=== PATIENT | female | born 1960 | race Caucasian/White ===

== ENCOUNTER → 2017-03-06 | Outpatient (CLI) | payer BC ==
--- NOTE | 2017-03-08 08:55 | MM ---
Reason for exam: screening (asymptomatic). Last mammogram was performed 1 year and 1 month ago. History: Patient is postmenopausal. Benign US biopsy breast VAD RT of the right breast, January 28, 2015. Benign excisional biopsy of the left breast, 1994. Took hormonal contraceptives for 9 years beginning at age 20. Took estrogen for 1 year 6 months. Physical Findings: A clinical breast exam by your physician is recommended on an annual basis and results should be correlated with mammographic findings. MG 3D Screening Mammo W/Cad Bilateral CC and MLO view(s) were taken. Prior study comparison: February 16, 2016, bilateral MG 3d diag mammo w/cad [facility]. August 09, 2015, right breast MG 3d diag mammo w/cad RT. August 09, 2015, right breast US breast RT. The breast tissue is heterogeneously dense. This may lower the sensitivity of mammography. Previous mammotome biopsy in the right breast. There is no discrete abnormality. ASSESSMENT: Benign, BI-RAD 2 RECOMMENDATION: Routine screening mammogram of both breasts in 1 year.
== END | disposition home or self-care (01) ==
LOC: RADMAMWWP 09:41
PROVIDERS: ATTEND Obstetrics & Gynecology
DX: Z12.31 Encounter for screening mammogram for malignant neoplasm of breast (principal)
CPT/HCPCS: 77063; G0202

== ENCOUNTER → 2017-03-12 | Outpatient (CLI) | payer BC ==
[2017-03-12 09:49] LABS: Aty Lym Flag Marked; CH 31.5; HCT 40.6 % (34.0-46.0); HDW 2.01; HGB 13.8 gm/dL (11.4-16.0); MCH 32.7 pg (25.0-35.0); MCHC 34.1 g/dL (31.0-37.0); MCV 95.9 fL (80.0-100.0); Mean Platelet Volume 6.7; RBC 4.23 m/uL (3.80-5.40); RDW 12.3 % (11.5-15.5); WBC 4.5 k/uL (3.8-10.6); WBC (Perox) 4.87
[2017-03-12 10:05] LABS: ALT 21 U/L (9-52); AST 21 U/L (14-36); Alkaline Phosphatase 61 U/L (38-126); Anion Gap 12 mmol/L; Blood Urea Nitrogen 17 mg/dL (7-17); Calcium 10.4 mg/dL (8.4-10.2); Carbon Dioxide 25 mmol/L (22-30); Chloride 105 mmol/L (98-107); Cholesterol 255 mg/dL (<200); Glucose 117 mg/dL (74-99); HDL Cholesterol 105 mg/dL (40-60); Non-African American GFR(MDRD) >60 (>60 ml/min/1.73 sqM); Potassium 4.1 mmol/L (3.5-5.1); Sodium 142 mmol/L (137-145); Total Protein 7.7 g/dL (6.3-8.2); Triglycerides 118 mg/dL (<150)
[2017-03-12 11:36] LABS: Hemoglobin A1C 5.5 % (4.2-6.1)
[2017-03-12 12:26] LABS: Add Differential Manual Differential
[2017-03-12 12:28] LABS: Nucleated Red Blood Cells 0 /100 WBC (0-0); Total Cells Counted 100
[2017-03-12 12:29] LABS: RBC Morphology Normal
== END | disposition home or self-care (01) ==
LOC: LABWHC1 09:17
PROVIDERS: ATTEND Internal Medicine Critical Care Medicine
DX: Z00.00 Encounter for general adult medical examination without abnormal findings (principal); I10 Essential (primary) hypertension; E78.5 Hyperlipidemia, unspecified; E55.9 Vitamin D deficiency, unspecified
CPT/HCPCS: 36415; 80053; 80061; 82306; 83036; 84439; 84443; 85025

== ENCOUNTER → 2017-03-13 | Outpatient (CLI) | payer BC | END | disposition home or self-care (01) | LOC: LABWHC1 13:16 | PROVIDERS: ATTEND Internal Medicine Critical Care Medicine | DX: E83.52 Hypercalcemia (principal) | CPT/HCPCS: 36415; 82330; 83970 ==

== ENCOUNTER → 2017-07-25 | Day surgery (SDC) | payer BC ==
[2017-07-23 15:15] VITALS: BMI 21.9
[~2017-07-25] MED LIST: LACTATED RINGERS 1,000 ML IV SCH; LIDOCAINE 1% 20 ML VIAL (10MG/ML) FOR IV START INTRADERMA ONE; ONDANSETRON 4 MG/2 ML VIAL IVP ONE; PROPOFOL 10 MG/ML 20 ML VIAL IV ONE
[2017-07-25 09:53] VITALS: RESP 16; TEMP 98.1
--- NOTE | 2017-07-25 10:43 | P.PCN ---
Date of Procedure: 07/25/17 Procedure(s) Performed: BRIEF HISTORY: Patient is a 56-year-old pleasant white female, scheduled for an elective colonoscopy as a part of evaluation of prior history of colon polyps. Last colonoscopy was in 5 years ago and was noted to have a tubular adenoma. PROCEDURE PERFORMED: Colonoscopy with snare polypectomy. PREOPERATIVE DIAGNOSIS: History of colon polyps. IV sedation per Anesthesia. PROCEDURE: After informed consent was obtained, the patient, was brought into the endoscopy unit. IV sedation was administered by Anesthesia under continuous monitoring. Digital rectal examination was normal. Initially the Olympus CF- 160 flexible video colonoscope was then inserted in the rectum, gradually advanced into the cecum without any difficulty. Careful examination was performed as the scope was gradually being withdrawn. Ileocecal valve and the appendiceal orifice were visualized and appeared normal. Prep was excellent. Mucosa of the cecum, ascending colon, transverse colon, descending colon, sigmoid colon, and rectum appeared normal. In the rectosigmoid colon at 20 cm from the anal was there was a 1 cm broad-based polyp removed by snare polyp ectomy. Retroflexion was performed in the rectum and no lesions were seen. The patient tolerated the procedure well. IMPRESSION: 1 cm broad-based recto sigmoid polyp status post polypectomy Rest of the colon appeared normal RECOMMENDATIONS: Findings of this examination were discussed with the patient as well as a family. She was advised to follow with the biopsy results. If the biopsy shows a tubular adenoma she can have a repeat colonoscopy in 3-5 years.
[2017-07-25 11:07] VITALS: BP 115/79; PULSE 65
== END | disposition home or self-care (01) ==
LOC: ORWHC2ENDO 09:00
PROVIDERS: ATTEND Internal Medicine Gastroenterology
DX: Z12.11 Encounter for screening for malignant neoplasm of colon (principal); D12.7 Benign neoplasm of rectosigmoid junction; I10 Essential (primary) hypertension; E78.5 Hyperlipidemia, unspecified; Z86.010 Personal history of colon polyps; Z88.2 Allergy status to sulfonamides; Z79.1 Long term (current) use of non-steroidal anti-inflammatories (NSAID); Z79.899 Other long term (current) drug therapy; Z86.73 Personal history of transient ischemic attack (TIA), and cerebral infarction without residual deficits
CPT/HCPCS: 45385; 88305; J2405; J2704

== ENCOUNTER → 2017-10-02 | Outpatient (CLI) | payer BC ==
[2017-10-02 08:39] LABS: Cholesterol 193 mg/dL (<200); Glucose 104 mg/dL (74-99); HDL Cholesterol 93 mg/dL (40-60); LDL Cholesterol,Calculated 85 mg/dL (0-99); Triglycerides 76 mg/dL (<150)
[2017-10-02 18:52] LABS: Hemoglobin A1C 5.5 % (4.0-6.0)
== END | disposition home or self-care (01) ==
LOC: LABWHC1 07:34
PROVIDERS: ATTEND Internal Medicine Critical Care Medicine
DX: E78.5 Hyperlipidemia, unspecified (principal); R73.09 Other abnormal glucose
CPT/HCPCS: 36415; 80061; 82947; 83036

== ENCOUNTER → 2018-03-13 | Outpatient (CLI) | payer BC ==
--- NOTE | 2018-03-14 10:35 | MM ---
Reason for exam: screening (asymptomatic). Last mammogram was performed 1 year ago. History: Patient is postmenopausal. Benign US biopsy breast VAD RT of the right breast, January 28, 2015. Benign excisional biopsy of the left breast, 1994. Took hormonal contraceptives for 9 years beginning at age 20. Took estrogen for 1 year 6 months. Physical Findings: A clinical breast exam by your physician is recommended on an annual basis and results should be correlated with mammographic findings. MG 3D Screening Mammo W/Cad Bilateral CC and MLO view(s) were taken. Prior study comparison: March 06, 2017, bilateral MG 3d screening mammo w/cad. February 16, 2016, bilateral MG 3d diag mammo w/cad [facility]. The breast tissue is heterogeneously dense. This may lower the sensitivity of mammography. There is no discrete abnormality. No significant changes when compared with prior studies. ASSESSMENT: Negative, BI-RAD 1 RECOMMENDATION: Routine screening mammogram of both breasts in 1 year.
== END | disposition home or self-care (01) ==
LOC: RADMAMWWP 11:03
PROVIDERS: ATTEND Obstetrics & Gynecology
DX: Z12.31 Encounter for screening mammogram for malignant neoplasm of breast (principal)
CPT/HCPCS: 77063; 77067

== ENCOUNTER → 2018-04-15 | Outpatient (CLI) | payer BC ==
--- NOTE | 2018-04-15 08:39 | US ---
EXAMINATION TYPE: US abdomen complete DATE OF EXAM: 04/15/2018 COMPARISON: US CLINICAL HISTORY: R10.84 Abdominal pain. Ant. flank pain, RLQ pain EXAM MEASUREMENTS: Liver Length: 11.4 cm Gallbladder Wall: 0.2 cm CBD: 0.3 cm Spleen: 8.5 cm Right Kidney: 11.3 x 4.1 x 5.7 cm Left Kidney: 13.3 x 5.9 x 6.0 cm Pancreas: visualized portions wnl Liver: wnl Gallbladder: No stones seen Evidence for sonographic Griffin's sign: No CBD: wnl Spleen: wnl Right Kidney: No hydronephrosis or masses seen Left Kidney: No hydronephrosis or masses seen Upper IVC: wnl Abd Aorta: wnl The visualized liver is slightly heterogeneous. The intrahepatic portion of the IVC and visualized a bdominal aorta are within normal limits. There is no evidence of cholelithiasis. Common bile duct i s unremarkable. The visualized portions of the pancreas are homogenous. The spleen is unremarkable. Kidneys are symmetric and free of hydronephrosis. No renal lesions are seen on images saved. IMPRESSION: No suspicious finding is seen to account for patient's symptoms.
--- NOTE | 2018-04-15 08:43 | XR ---
EXAMINATION TYPE: XR abdomen 1V DATE OF EXAM: 04/15/2018 8:40 AM CLINICAL HISTORY: Lower abdominal pain. TECHNIQUE: Two supine KUB images of the abdomen are obtained. COMPARISON: None. FINDINGS: Scattered gas is seen in non-distended small bowel loops. Gas and fecal material is seen in non-distended colon. Scattered pelvic phleboliths are seen. There are round densities or calcificati ons in the epigastric region of uncertain etiology . Lung bases are clear. Visualized osseous structu res are intact. IMPRESSION: Overall nonobstructive bowel gas pattern.
== END | disposition home or self-care (01) ==
LOC: RADUSWWP 08:02
PROVIDERS: ATTEND Internal Medicine Critical Care Medicine
DX: R10.84 Generalized abdominal pain (principal); R10.13 Epigastric pain
CPT/HCPCS: 74018; 76700

== ENCOUNTER → 2018-10-01 | Outpatient (CLI) | payer BC ==
[2018-10-01 09:19] LABS: HCT 40.8 % (34.0-46.0); HGB 13.3 gm/dL (11.4-16.0); MCH 31.2 pg (25.0-35.0); MCHC 32.6 g/dL (31.0-37.0); MCV 95.6 fL (80.0-100.0); Mean Platelet Volume 6.7; Platelet Count 277 k/uL (150-450); RBC 4.26 m/uL (3.80-5.40); RDW 12.6 % (11.5-15.5); WBC 4.6 k/uL (3.8-10.6)
[2018-10-01 10:31] LABS: Eosinophils # (M) 0.14 k/uL (0-0.7); Lymphocytes # (M) 2.02 k/uL (1.0-4.8); Monocytes # (M) 0.41 k/uL (0-1.0); Neutrophils # (M) 2.02 k/uL (1.3-7.7); Neutrophils % (M) 44 %; Nucleated Red Blood Cells 0 /100 WBC (0-0); Total Cells Counted 100
[2018-10-01 16:39] LABS: Albumin 4.8 g/dL (3.80-4.90); Anion Gap 9.8 mmol/L (4.00-12.00); Calcium 9.8 mg/dL (8.7-10.3); Carbon Dioxide 26.2 mmol/L (21.6-31.8); Globulin 1.6 g/dL (1.6-3.3); Phosphorus 3.6 mg/dL (2.4-5.1); Potassium 3.7 mmol/L (3.5-5.5); Total Bilirubin 0.8 mg/dL (0.3-1.2); Total Protein 6.4 g/dL (6.2-8.2)
[2018-10-01 16:46] LABS: T4, Free (Free Thyroxine) 1.1 ng/dL (0.80-1.80)
[2018-10-01 17:24] LABS: Vitamin D 25 Hydroxy 38.9 ng/mL (30.0-100.0)
[2018-10-01 17:33] LABS: Hemoglobin A1C 5.4 % (4.0-6.0)
[2018-10-01 18:43] LABS: Folate, Serum >24.0 ng/mL
== END ==
LOC: LABWHC1 08:50
PROVIDERS: ATTEND Internal Medicine Critical Care Medicine
DX: I10 Essential (primary) hypertension (principal); G47.00 Insomnia, unspecified
CPT/HCPCS: 36415; 80053; 80061; 82306; 82607; 82746; 83036; 83735; 84100; 84425; 84439; 84443; 85025

== ENCOUNTER → 2019-01-24 | Outpatient (CLI) | payer BC ==
--- NOTE | 2019-01-24 13:56 | CT ---
EXAMINATION TYPE: CT sinus wo con DATE OF EXAM: 01/24/2019 COMPARISON: CT facial bones September 22, 2013 HISTORY: Chronic sinusitis per order. Facial pain and ringing in right ear per patient CT DLP: 624.2 mGycm. Automated Exposure Control for Dose Reduction was Utilized. TECHNIQUE: CT scan of the sinuses is performed without contrast, axial images are obtained, coronal r eformatted images are also reviewed. FINDINGS: Minimal mucosal thickening inferior left maxillary sinus is redemonstrated. Mild to minimal mucosal thickening involving anterior ethmoid sinuses bilaterally is again seen. Remainder sinuses a re clear without suspicious opacification or air-fluid levels.. The ostiomeatal complex is patent bi laterally on the coronal images. Mild to moderate mucosal antral thickening coronal image 19 is noted . There is evidence of prior surgery lower right nasal turbinates unchanged from prior. Nasal septum remains deviated to left of midline. Visualized portion of mastoid air cells show no abnormal opacification. The globes are intact bilate rally. Visualized brain parenchyma is unremarkable IMPRESSION: Mild chronic paranasal sinus disease. No acute sinusitis.
== END | disposition home or self-care (01) ==
LOC: RADCTMAIN 13:30
PROVIDERS: ATTEND Internal Medicine Critical Care Medicine
DX: J32.9 Chronic sinusitis, unspecified (principal)
CPT/HCPCS: 70486

== ENCOUNTER → 2019-03-14 | Outpatient (CLI) | payer BC ==
--- NOTE | 2019-03-17 10:47 | MM ---
Reason for exam: screening (asymptomatic). Last mammogram was performed 1 year ago. History: Patient is postmenopausal. Benign US biopsy breast VAD RT of the right breast, January 28, 2015. Benign excisional biopsy of the left breast, 1994. Took hormonal contraceptives for 9 years beginning at age 20. Took estrogen for 1 year 6 months. Physical Findings: A clinical breast exam by your physician is recommended on an annual basis and results should be correlated with mammographic findings. MG 3D Screening Mammo W/Cad Bilateral CC and MLO view(s) were taken. Prior study comparison: March 13, 2018, bilateral MG 3d screening mammo w/cad. March 06, 2017, bilateral MG 3d screening mammo w/cad. The breast tissue is heterogeneously dense. This may lower the sensitivity of mammography. Benign appearing bilateral calcifications. No significant changes when compared with prior studies. ASSESSMENT: Benign, BI-RAD 2 RECOMMENDATION: Routine screening mammogram of both breasts in 1 year.
== END | disposition home or self-care (01) ==
LOC: RADMAMWWP 13:20
PROVIDERS: ATTEND Obstetrics & Gynecology
DX: Z12.31 Encounter for screening mammogram for malignant neoplasm of breast (principal)
CPT/HCPCS: 77063; 77067

== ENCOUNTER → 2019-04-10 | Outpatient (CLI) | payer BC ==
[2019-04-10 16:08] LABS: African American GFR (CKD) 71.4 (60.0-200.0)
== END | disposition home or self-care (01) ==
LOC: LABWHC1 11:21
PROVIDERS: ATTEND Otolaryngology
DX: H91.92 Unspecified hearing loss, left ear (principal); R42 Dizziness and giddiness; H93.12 Tinnitus, left ear; H93.3X2 Disorders of left acoustic nerve; Z88.2 Allergy status to sulfonamides
CPT/HCPCS: 36415; 82565; 84520

== ENCOUNTER → 2020-03-24 | Outpatient (CLI) | payer BC ==
[2020-03-24 18:37] LABS: HCT 43.5 % (34.0-46.0); HGB 13.2 gm/dL (11.4-16.0); MCH 30.2 pg (25.0-35.0); MCHC 30.3 g/dL (31.0-37.0); MCV 99.8 fL (80.0-100.0); Mean Platelet Volume 9.2; Platelet Count 229 k/uL (150-450); RBC 4.36 m/uL (3.80-5.40); RDW 12.5 % (11.5-15.5); WBC 4.7 k/uL (3.8-10.6)
[2020-03-24 19:27] LABS: Band Neutrophils % 1 %; Eosinophils # (M) 0.14 k/uL (0-0.7); Monocytes # (M) 0.38 k/uL (0-1.0); Neutrophils % (M) 56 %; Nucleated Red Blood Cells 0 /100 WBC (0-0); Total Cells Counted 100
[2020-03-24 19:32] LABS: Poikilocytosis (M) Present
[2020-03-24 23:20] LABS: African American GFR (CKD) 92.9 (60.0-200.0); Albumin 4.9 g/dL (3.80-4.90); Albumin/Globulin Ratio 2.23 (1.60-3.17); Anion Gap 9.3 mmol/L (4.00-12.00); BUN/Creat Ratio 26.25 Ratio (12.00-20.00); Calcium 10.4 mg/dL (8.7-10.3); Carbon Dioxide 27.7 mmol/L (21.6-31.8); Chol/HDL Ratio 2.32; Globulin 2.2 g/dL (1.6-3.3); LDL Cholesterol,Calculated 112.6 mg/dL (0.0-131.0); Non-African American GFR(CKD) 80.1 (60.0-200.0); Potassium 4.4 mmol/L (3.5-5.5); Total Protein 7.1 g/dL (6.2-8.2); VLDL Calculation 12.4 mg/dL (5.00-40.00)
[2020-03-24 23:27] LABS: T4, Free (Free Thyroxine) 1.1 ng/dL (0.80-1.80)
[2020-03-24 23:49] LABS: Hemoglobin A1C 5.6 % (4.0-6.0)
== END | disposition home or self-care (01) ==
LOC: LABWHC1 09:41
PROVIDERS: ATTEND Internal Medicine Critical Care Medicine
DX: Z00.00 Encounter for general adult medical examination without abnormal findings (principal); E55.9 Vitamin D deficiency, unspecified; R73.03 Prediabetes; I10 Essential (primary) hypertension; L30.9 Dermatitis, unspecified
CPT/HCPCS: 36415; 80053; 80061; 82306; 83036; 84439; 84443; 85025

== ENCOUNTER → 2020-03-30 | Outpatient (CLI) | payer BC ==
--- NOTE | 2020-03-31 14:56 | MM ---
Reason for exam: screening (asymptomatic). Last mammogram was performed 1 year and 1 month ago. History: Patient is postmenopausal. Benign US biopsy breast VAD RT of the right breast, January 28, 2015. Benign excisional biopsy of the left breast, 1994. Took hormonal contraceptives for 9 years beginning at age 20. Took estrogen for 1 year 6 months. Physical Findings: A clinical breast exam by your physician is recommended on an annual basis and results should be correlated with mammographic findings. MG 3D Screening Mammo W/Cad Bilateral CC and MLO view(s) were taken. Prior study comparison: March 14, 2019, bilateral MG 3d screening mammo w/cad. March 13, 2018, bilateral MG 3d screening mammo w/cad. No significant changes when compared with prior studies. ASSESSMENT: Benign, BI-RAD 2 RECOMMENDATION: Routine screening mammogram of both breasts in 1 year.
== END | disposition home or self-care (01) ==
LOC: RADMAMWWP 14:36
PROVIDERS: ATTEND Obstetrics & Gynecology
DX: Z12.31 Encounter for screening mammogram for malignant neoplasm of breast (principal)
CPT/HCPCS: 77063; 77067

== ENCOUNTER → 2020-06-28 | Outpatient (CLI) | payer BC ==
[2020-06-28 11:20] LABS: Cholesterol 202 mg/dL (<200); Triglycerides 92 mg/dL (<150)
[2020-06-28 11:27] LABS: LDL Cholesterol,Calculated 83 mg/dL (0-99)
[2020-06-28 11:29] LABS: HDL Cholesterol 101 mg/dL (40-60)
--- NOTE | 2020-06-28 11:42 | USB ---
Reason for exam: clinical finding. History: Patient is postmenopausal. Benign US biopsy breast VAD RT of the right breast, January 28, 2015. Benign excisional biopsy of the left breast, 1994. Took hormonal contraceptives for 9 years beginning at age 20. Took estrogen for 1 year 6 months. Physical Findings: Nurse did not find any significant physical abnormalities on exam. US Breast RT Right complete breast ultrasound includes all four quadrants, the retroareolar region and axilla. Finding demonstrates a 0.5 x 0.5 x 0.5cm oval, cluster, cystic, benign lesion at 9 o'clock and a 0.9 x 0.5 x 0.3cm oval, cyst, mixed lesion at 10 o'clock, stable from 2014, benign. These results were verbally communicated with the patient and result sheet given to the patient on 06/28/20. ASSESSMENT: Benign, BI-RAD 2 RECOMMENDATION: Return to routine screening mammogram schedule for both breasts. Manage on a clinical basis with regard to right breast pain.
== END | disposition home or self-care (01) ==
LOC: RADUSWWP 08:56
PROVIDERS: ATTEND Internal Medicine Critical Care Medicine
DX: N63.41 Unspecified lump in right breast, subareolar (principal); E78.00 Pure hypercholesterolemia, unspecified
CPT/HCPCS: 36415; 80061

== ENCOUNTER → 2020-08-20 | Day surgery (SDC) | payer BC ==
[2020-08-17 12:45] VITALS: BMI 21.5
[~2020-08-20] MED LIST changes: +LIDOCAINE 1% (10MG/ML) FOR IV START INTRADERMA PRN; -LIDOCAINE 1% 20 ML VIAL (10MG/ML) FOR IV START INTRADERMA ONE; +MIDAZOLAM 2 MG/2 ML VIAL ONE; -ONDANSETRON 4 MG/2 ML VIAL IVP ONE
[2020-08-20 10:38] VITALS: TEMP 97.7
--- NOTE | 2020-08-20 11:36 | P.PCN ---
Date of Procedure: 08/20/20 Procedure(s) Performed: BRIEF HISTORY: Patient is a 59-year-old pleasant white female scheduled for an elective colonoscopy as a part of evaluate of prior history of colon polyps. Last colonoscopy was 3 years ago. PROCEDURE PERFORMED: Colonoscopy snare polypectomy. PREOPERATIVE DIAGNOSIS: History of colon polyps. IV sedation per Anesthesia. PROCEDURE: After informed consent was obtained, the patient, was brought into the endoscopy unit. IV sedation was administered by Anesthesia under continuous monitoring. Digital rectal examination was normal. Initially the Olympus CF-160 flexible video colonoscope was then inserted in the rectum, gradually advanced into the cecum without any difficulty. Careful examination was performed as the scope was gradually being withdrawn. Ileocecal valve and the appendiceal orifice were visualized and appeared normal. Prep was fair. There was some sticky s till noted in the base of the cecum that was irrigated.. Mucosa of the cecum, ascending colon, appeared normal. In the hepatic flexure there was a 5 mm polyp that was removed by snare polypectomy. Rest of the transverse colon, descending colon, sigmoid colon, and rectum appeared normal. Retroflexion was performed in the rectum and no lesions were seen. The patient tolerated the procedure well. IMPRESSION: 5 mm hepatic flexure polyp status post polypectomy Rest of the colon appeared normal RECOMMENDATIONS: Findings of this examination were discussed with the patient as well as a family. She was advised to follow with the biopsy results and have a repeat surveillance colonoscopy in 5 years from now.
[2020-08-20 11:40] VITALS: RESP 17
[2020-08-20 11:49] VITALS: BP 122/74; PULSE 78
== END ==
LOC: ORWHC2ENDO 09:57
PROVIDERS: ATTEND Internal Medicine Gastroenterology
DX: Z12.11 Encounter for screening for malignant neoplasm of colon (principal); K63.5 Polyp of colon; Z86.010 Personal history of colon polyps; I10 Essential (primary) hypertension; E78.5 Hyperlipidemia, unspecified; L30.9 Dermatitis, unspecified; L71.9 Rosacea, unspecified; Z79.899 Other long term (current) drug therapy; Z88.2 Allergy status to sulfonamides
CPT/HCPCS: 88305; 45385; J2250; J2704

== ENCOUNTER → 2021-03-31 | Outpatient (CLI) | payer BC ==
--- NOTE | 2021-04-01 12:22 | MM ---
Reason for exam: screening (asymptomatic). Last mammogram was performed 1 year ago. History: Patient is postmenopausal. Benign US biopsy breast VAD RT of the right breast, January 28, 2015. Benign excisional biopsy of the left breast, 1994. Took hormonal contraceptives for 9 years beginning at age 20. Took estrogen for 1 year 6 months. Physical Findings: A clinical breast exam by your physician is recommended on an annual basis and results should be correlated with mammographic findings. MG 3D Screening Mammo W/Cad Bilateral CC and MLO view(s) were taken. Prior study comparison: March 30, 2020, bilateral MG 3d screening mammo w/cad. March 14, 2019, bilateral MG 3d screening mammo w/cad. There are scattered fibroglandular densities. Right biopsy clip. ASSESSMENT: Benign, BI-RAD 2 RECOMMENDATION: Routine screening mammogram of both breasts in 1 year.
== END | disposition home or self-care (01) ==
LOC: RADMAMWWP 12:26
PROVIDERS: ATTEND Obstetrics & Gynecology
DX: Z12.31 Encounter for screening mammogram for malignant neoplasm of breast (principal); Z78.0 Asymptomatic menopausal state; Z79.3 Long term (current) use of hormonal contraceptives
CPT/HCPCS: 77063; 77067

== ENCOUNTER → 2021-05-11 | Outpatient (CLI) | payer BC ==
[2021-05-11 15:45] LABS: Basophils # (A) 0.03 X 10*3/uL (0.00-0.10); Basophils % (A) 0.6 %; Eosinophils # (A) 0.12 X 10*3/uL (0.04-0.35); Eosinophils % (A) 2.5 %; HCT 42.8 % (37.2-46.3); HGB 13.5 g/dL (12.0-15.0); Lymphocytes # (A) 1.87 X 10*3/uL (0.90-5.00); Lymphocytes % (A) 38.5 %; MCH 31.2 pg (27.0-32.0); MCHC 31.5 g/dL (32.0-37.0); MCV 98.8 fL (80.0-97.0); Monocytes # (A) 0.59 X 10*3/uL (0.20-1.00); Monocytes % (A) 12.1 %; Neutrophils # (A) 2.24 X 10*3/uL (1.80-7.70); Neutrophils % (A) 46.1 %; Platelet Count 274 X 10*3/uL (140-440); RBC 4.33 X 10*6/uL (4.10-5.20); RDW 12.7 % (11.5-14.5); WBC 4.86 X 10*3/uL (4.50-10.00)
[2021-05-11 18:25] LABS: African American GFR (CKD) 92.2 (60.0-200.0); Albumin 4.9 g/dL (3.80-4.90); Albumin/Globulin Ratio 2.04 (1.60-3.17); Anion Gap 10.6 mmol/L (4.00-12.00); Calcium 9.9 mg/dL (8.7-10.3); Carbon Dioxide 25.4 mmol/L (21.6-31.8); Chol/HDL Ratio 2.45; Globulin 2.4 g/dL (1.6-3.3); LDL Cholesterol,Calculated 115.8 mg/dL (0.0-131.0); Non-African American GFR(CKD) 79.6 (60.0-200.0); Potassium 4.1 mmol/L (3.5-5.5); Total Bilirubin 1.1 mg/dL (0.2-1.2); Total Protein 7.3 g/dL (6.2-8.2); VLDL Calculation 16.2 mg/dL (5.00-40.00)
[2021-05-11 18:33] LABS: T4, Free (Free Thyroxine) 0.9 ng/dL (0.80-1.80)
[2021-05-11 21:12] LABS: Hemoglobin A1C 5.4 % (4.0-6.0)
== END | disposition home or self-care (01) ==
LOC: LABWHC1 08:52
PROVIDERS: ATTEND Internal Medicine Critical Care Medicine
DX: Z00.00 Encounter for general adult medical examination without abnormal findings (principal); D33.3 Benign neoplasm of cranial nerves; E55.9 Vitamin D deficiency, unspecified; R73.03 Prediabetes; E78.5 Hyperlipidemia, unspecified; I10 Essential (primary) hypertension; N32.81 Overactive bladder
CPT/HCPCS: 36415; 80053; 80061; 82306; 83036; 84439; 84443; 85025

== ENCOUNTER → 2022-04-05 | Outpatient (CLI) | payer BC ==
--- NOTE | 2022-04-06 19:51 | MM ---
Reason for Exam: Screening (asymptomatic). Last screening mammogram was performed 12 month(s) ago. Patient History: Menarche at age 14. First Full-Term at age 29. Late child-bearing (after 30). Postmenopausal. Currently using Estrogen, starting at age 58. Hormonal Contraceptives for 9 years from age 20 until age 32. 1994, Benign Excisional Biopsy on the left side. 01/28/2015, Benign Core Biopsy on the right side. Risk Values: Minnie 5 year model risk: 2.9%. NCI Lifetime model risk: 12.7%. Prior Study Comparison: 03/14/2019 Bilateral Screening Mammogram, [facility]. 03/30/2020 Bilateral Screening Mammogram, [facility]. 03/31/2021 Bilateral Screening Mammogram, [facility]. Tissue Density: The breast tissue is heterogeneously dense. This may lower the sensitivity of mammography. Findings: Analyzed By CAD. There is no suspicious group of microcalcifications or new suspicious mass in either breast. Overall Assessment: Negative, BI-RAD 1 Management: Screening Mammogram of both breasts in 1 year. 1. Patient should continue monthly self breast exams. 2. A clinical breast exam by your physician is recommended on an annual basis. 3. This exam should not preclude additional follow-up of suspicious palpable abnormalities. Electronically signed and approved by: Latisha Arriaga M.D. Radiologist
== END | disposition home or self-care (01) ==
LOC: RADMAMWWP 10:02
PROVIDERS: ATTEND Obstetrics & Gynecology
DX: Z12.31 Encounter for screening mammogram for malignant neoplasm of breast (principal); Z78.0 Asymptomatic menopausal state
CPT/HCPCS: 77063; 77067

== ENCOUNTER → 2022-08-17 | Outpatient (CLI) | payer BC ==
--- NOTE | 2022-08-19 13:35 | MR ---
EXAMINATION TYPE: MR brain and iac wo/w con DATE OF EXAM: 08/17/2022 COMPARISON: NONE HISTORY: 61-year-old female D33.3, benign neoplasm or cranial nerves, Left hearing loss, acoustic michael tomas TECHNIQUE: Multiplanar, multisequence images of the brain and brainstem were acquired before and aft er administration of 7 mL IV Gadavist. Diffusion weighted imaging was performed. Additional coned-d own sequences through the internal auditory canals and posterior cranial fossa before and after IV co ntrast administration. FINDINGS: Diffusion weighted images demonstrate no evidence of an acute ischemic lesion in the brain. T2/FLAIR weighted sequences show mild scattered foci of bright white matter foci in the periventricul ar, deep white matter, and subcortical regions of both cerebral hemispheres, approximately 5 foci in each side. Likely age-related change or mild burden of chronic small vessel ischemic disease. Midline structures demonstrate normal morphology. The craniocervical junction is normal. There is mild age-related volume loss over the bifrontal cerebral cortices. The ventricles are of nor mal caliber. There is no evidence of an acute intracranial hemorrhage, infarct, mass, mass-effect or an extra-axia l fluid collection. There is no cerebellopontine angle mass. There is a small looped vessel located within the left internal auditory canal. The internal auditory canals are otherwise symmetric. Relatively small caliber to the vertebral and basilar arteries. Persistent origin right VOLUNTEER COORDINATOR. Brainstem and skull base abnormalities are not seen. Post contrast images demonstrate no evidence of pathologic enhancement in the posterior cranial amanda a or the internal auditory canals. There is no abnormal enhancement of the labyrinths. Slight leftward nasal deviation. Globes are intact. The right inferior turbinate appears small in siz e, query prior partial resection. 1.2 cm enhancing nodule posterior right nasal cavity along the medial wall of the maxillary sinus, li kenneth a nasal polyp. Moderate mucosal thickening anterior ethmoid air cells. Leftward nasal septal dev iation. 1.2 cm mucosal retention cyst in the anterior roof of the right maxillary sinus. IMPRESSION: 1. A small looped vessel incidentally noted within the left internal auditory canal of questionable s ignificance. Findings may be seen in the setting of vascular compression syndromes. Clinically correl ate. 2. No evidence for acoustic neuroma or posterior fossa mass. 3. Relatively small caliber to the vertebral and basilar arteries. Correlate for any potential chroni c symptoms of vertebrobasilar insufficiency. 4. No acute intracranial abnormality or enhancing lesion seen. 5. Incidental 1.2 cm soft tissue nodule posterior right nasal cavity, likely a nasal polyp.
== END | disposition home or self-care (01) ==
LOC: RADMRIMAIN 12:04
PROVIDERS: ATTEND Otolaryngology Otology & Neurotology
DX: D33.3 Benign neoplasm of cranial nerves (principal); J34.89 Other specified disorders of nose and nasal sinuses; H91.92 Unspecified hearing loss, left ear
CPT/HCPCS: 70553; A9585

== ENCOUNTER → 2022-09-11 | Outpatient (CLI) | payer BC ==
--- NOTE | 2022-09-12 04:35 | MR ---
EXAMINATION TYPE: MR lumbar spine wo/w con DATE OF EXAM: 09/11/2022 COMPARISON: None HISTORY: Lower back pain, radiculpathy in both feet and back of right calf. CONTRAST: Standard multiplanar, multisequence MRI departmental protocol images were obtained without contrast a nd with 7 mL intravenous Gadavist gadolinium contrast. The lumbar vertebrae have normal alignment. There is minimal disc space narrowing throughout the lumb ar spine. There is developmentally large spinal canal. No spinal stenosis. There are small posterior disc bulging at L4-5. The neural foramina are fairly well maintained. No compression fracture. No lum bar paraspinal mass. The contrast images show no pathologic enhancement. No evidence of focal bone destruction. IMPRESSION: Minor degenerative disc changes in the lumbar spine. No fracture. No spinal stenosis.
== END | disposition home or self-care (01) ==
LOC: RADMRIMAIN 21:50
PROVIDERS: ATTEND Internal Medicine Critical Care Medicine
DX: M51.16 Intervertebral disc disorders with radiculopathy, lumbar region (principal)
CPT/HCPCS: 72158; A9585

== ENCOUNTER → 2023-03-08 | Outpatient (CLI) | payer BC ==
--- NOTE | 2023-03-09 08:45 | US ---
EXAMINATION TYPE: US arterial LE single level DATE OF EXAM: 03/08/2023 1:18 PM CLINICAL INDICATION: Female, 62 years old with history of I70.92 CHRONIC TOTAL OCCLUSION OF ARTERY; P atient states having what started as foot pain which progressed to calf pain, R>L History of: Smoker: Never Hypertension: Yes Diabetic: No Hyperlipidemia: Yes TIA/CVA: No Previous Vascular Surgery: No CAD: No [place]: No Vascular Ulcers: No Claudication: No Gangrene: No Doppler Waveforms: Right: Multiphasic Left: Multiphasic Right Brachial Pressure: 108 Left Brachial Pressure: 114 Ankle-Brachial Indices: Right: 1.3 Left: 1.4 Toe Brachial Indices: Right: 1.0 Left: 1.1 IMPRESSION: 1. Normal EVELYNE and TBI indices.
== END | disposition home or self-care (01) ==
LOC: RADUSWWP 12:51
PROVIDERS: ATTEND Internal Medicine Critical Care Medicine
DX: I70.92 Chronic total occlusion of artery of the extremities (principal)
CPT/HCPCS: 93922

== ENCOUNTER → 2023-04-11 | Outpatient (CLI) | payer BC ==
--- NOTE | 2023-04-11 14:22 | MM ---
Reason for Exam: Screening (asymptomatic). Last screening mammogram was performed 12 month(s) ago. Patient History: Menarche at age 14. First Full-Term at age 29. Late child-bearing (after 30). Postmenopausal. Currently using Estrogen, starting at age 58. Hormonal Contraceptives for 9 years from age 20 until age 32. 1994, Benign Excisional Biopsy on the left side. 01/28/2015, Benign Core Biopsy on the right side. Risk Values: Minnie 5 year model risk: 3.0%. NCI Lifetime model risk: 12.3%. Prior Study Comparison: 03/30/2020 Bilateral Screening Mammogram, [facility]. 03/31/2021 Bilateral Screening Mammogram, [facility]. 04/05/2022 Bilateral MG 3D screening mammo w/cad, [facility]. Tissue Density: The breast tissue is heterogeneously dense. This may lower the sensitivity of mammography. Findings: Analyzed By CAD. There is no suspicious group of microcalcifications or new suspicious mass in either breast.Right breast biopsy clip. There is no suspicious group of microcalcifications or new suspicious mass in either breast. Overall Assessment: Negative, BI-RAD 1 Management: Screening Mammogram of both breasts in [address] [facility] will attempt to contact patient to return for supplemental views and ultrasound if indicated. Patient should continue monthly self-breast exams. A clinical breast exam by your physician is recommended on an annual basis. This exam should not preclude additional follow-up of suspicious palpable abnormalities. Note on Minnie scores and lifetime risk: 1. A Minnie score greater than 3% is considered moderate risk. If this is the case, consider specialist referral to assess eligibility for a risk reducing agent. 2. If overall lifetime risk for the development of breast cancer is 20% or higher, the patient may qualify for future screening with alternating mammogram and breast MRI. Electronically signed and approved by: Kiko Robledo DO
== END | disposition home or self-care (01) ==
LOC: RADMAMWWP 10:07
PROVIDERS: ATTEND Obstetrics & Gynecology
DX: Z12.31 Encounter for screening mammogram for malignant neoplasm of breast (principal); Z78.0 Asymptomatic menopausal state
CPT/HCPCS: 77063; 77067

== ENCOUNTER → 2024-04-16 | Outpatient (CLI) | payer BC ==
--- NOTE | 2024-04-17 09:54 | MM ---
Reason for Exam: Screening (asymptomatic). Last screening mammogram was performed 12 month(s) ago. Patient History: Menarche at age 14. First Full-Term at age 29. Late child-bearing (after 30). Postmenopausal. Currently using Estrogen, starting at age 58. Hormonal Contraceptives for 9 years from age 20 until age 32. 1994, Benign Excisional Biopsy on the left side. 01/28/2015, Benign Core Biopsy on the right side. Risk Values: Minnie 5 year model risk: 3.0%. NCI Lifetime model risk: 11.9%. Prior Study Comparison: 03/31/2021 Bilateral Screening Mammogram, [facility]. 04/05/2022 Bilateral MG 3D screening mammo w/cad, [facility]. 04/11/2023 Bilateral MG 3D screening mammo w/cad, [facility]. Tissue Density: The breasts are heterogeneously dense, which may obscure small masses. Findings: Analyzed By CAD. There is no suspicious group of microcalcifications or new suspicious mass in either breast. Overall Assessment: Negative, BI-RAD 1 Management: Screening Mammogram of both breasts in 1 year. . Patient should continue monthly self-breast exams. A clinical breast exam by your physician is recommended on an annual basis. This exam should not preclude additional follow-up of suspicious palpable abnormalities. Note on Minnie scores and lifetime risk: 1. A Minnie score greater than 3% is considered moderate risk. If this is the case, consider specialist referral to assess eligibility for a risk reducing agent. 2. If overall lifetime risk for the development of breast cancer is 20% or higher, the patient may qualify for future screening with alternating mammogram and breast MRI. Electronically signed and approved by: Dale Akers M.D. Radiologis
== END | disposition home or self-care (01) ==
LOC: RADMAMWWP 13:47
PROVIDERS: ATTEND Obstetrics & Gynecology Obstetrics
DX: Z12.31 Encounter for screening mammogram for malignant neoplasm of breast (principal); R92.333 Mammographic heterogeneous density, bilateral breasts; Z78.0 Asymptomatic menopausal state
CPT/HCPCS: 77063; 77067

== ENCOUNTER → 2024-09-27 | Outpatient (CLI) | payer BC ==
--- NOTE | 2024-09-28 11:26 | MR ---
EXAMINATION TYPE: MR cspine/tspine/lspine wo con DATE OF EXAM: 09/27/2024 11:33 AM COMPARISON: None. CLINICAL INDICATION: Female, 63 years old with history of M54.12 RADICULOPATHY M54.14 M54.16, Nerve pain, back of right calf and in bottom of feet. TECHNIQUE: Multiplanar multiecho imaging on a 3.0 Stephie magnet is performed through the cervical spin e. IV Contrast: mL (None, if empty) FINDINGS: The craniovertebral junction is normal. Vertebral body alignment is normal. C7-T1: No focal disc herniation or significant disc bulge is evident. No spinal canal stenosis or n eural foraminal stenosis is present. C6-7: Broad-based disc bulge is present. This may be slightly greater to the left paracentral region extending towards the foramen. No cord contact or spinal canal stenosis is present. There is moderate right and severe left foraminal stenosis from uncovertebral joint hypertrophy. Posterior disc space narrowing present. C5-6: There may be a small central protrusion with mild anterior thecal sac contact. No AP spinal can al stenosis is present. Neural foramen and mild narrowing from uncovertebral joint hypertrophy. Mild disc space narrowing present. No spinal canal stenosis or neural foraminal stenosis is present. C4-5: No focal disc herniation or significant disc bulge is evident. No spinal canal stenosis or michael ral foraminal stenosis is present. C3-4: No focal disc herniation or significant disc bulge is evident. No spinal canal stenosis or michael ral foraminal stenosis is present. C2-3: No focal disc herniation or significant disc bulge is evident. No spinal canal stenosis or michael ral foraminal stenosis is present. IMPRESSION: 1. Mild disc bulging greater in the left paracentral region C6-7. No spinal canal stenosis present. EXAMINATION TYPE: MR cspine/tspine/lspine wo con DATE OF EXAM: 09/27/2024 11:33 AM COMPARISON: None. CLINICAL INDICATION: Female, 63 years old with history of M54.12 RADICULOPATHY M54.14 M54.16, Nerve pain, back of right calf and in bottom of feet. TECHNIQUE: Multiplanar, multiecho imaging on a 3.0 Stephie magnet is performed through the thoracic spi ne. IV Contrast: mL (None, if empty) FINDINGS: Spinal cord maintains normal signal through its visualized course. Vertebral body alignment is normal. Vertebral body heights are preserved. Disc heights are preserved. Minimal right paracentral disc bulge may be present T2-3. No cord contact or spinal canal stenosis pr esent. Some mild disc desiccation at the mid to lower thoracic spine. Remaining discs have normal hydration No spinal canal stenosis is evident. IMPRESSION: 1. Minimal right paracentral disc bulge at T2-3 without cord contact or spinal canal stenosis. EXAMINATION TYPE: MR cspine/tspine/lspine wo con DATE OF EXAM: 09/27/2024 11:33 AM COMPARISON: 09/11/2022 CLINICAL INDICATION: Female, 63 years old with history of M54.12 RADICULOPATHY M54.14 M54.16, Nerve pain, back of right calf and in bottom of feet. TECHNIQUE: Multiplanar, multisequence images of the lumbar spine were acquired. IV Contrast: mL (None, if empty) FINDINGS: Cord ends at the L1 level. L5-S1: No focal disc herniation or significant disc bulge. No spinal canal stenosis. Neural foramen are patent. L4-L5: Mild right paracentral disc bulge is minimal anterior thecal sac contact. Some exiting right L 5 nerve root contact may be present. No AP spinal canal stenosis is evident. Neural foramen are paten t. L3-L4: No focal disc herniation or significant disc bulge. No spinal canal stenosis. Mild facet hype rtrophy is present greater on the left with some mild posterior lateral thecal sac compression. No fo raminal narrowing is evident. L2-L3: No focal disc herniation or significant disc bulge. No spinal canal stenosis. Neural foramen are patent. L1-L2: No focal disc herniation or significant disc bulge. No spinal canal stenosis. Neural foramen are patent. T12-L1: No focal disc herniation or significant disc bulge. No spinal canal stenosis. Neural forame n are patent. No significant interval change. IMPRESSION: 1. Mild right paracentral disc bulge L4-5. Correlate with right L5 radicular symptoms. [facility], , 09/28/2024 11:24 AM
== END | disposition home or self-care (01) ==
LOC: RADMRIMAIN 09:48
PROVIDERS: ATTEND Specialist
DX: M51.16 Intervertebral disc disorders with radiculopathy, lumbar region (principal); M50.13 Cervical disc disorder with radiculopathy, cervicothoracic region
CPT/HCPCS: 72141; 72146; 72148